=== PATIENT | female | born 1970 | race Caucasian/White ===

== ENCOUNTER 2018-12-25 18:12 | Emergency (ER) | payer BC, OTHER ==
[~2018-12-25] VITALS: Ht 157.5 cm; Wt 86.2 kg
[~2018-12-25 18:12] MED LIST: ACET650S13 PO; AGM875T GT; ASPI325T32 PO; CPR500T PO; CYCL10TA9 PO; IBUP-15 PO; METR500T PO; OMEP20CA12 PO; OXYC-199 PO; PRD20T PO; PRM25T PO; ROLAIDS PO; SCR1T1 PO; TERB15CR6 TP; TRAM50TA2 PO; TRAZ-144 PO
[2018-12-25] MEDS ORDERED: DEXAMETHASONE 10 MG/ML (DECADRON) 1 ML VIAL IM ONE (18:45)
--- NOTE | 2018-12-25 18:46 | ED EENT ---
History of Present Illness General Chief Complaint: Ear Problems Stated Complaint: FEVER Nursing Triage Note: C/O OF EAR PAIN FOR 1 WEEK WITH FEVER LAST TOOK OTC PAIN LAST NIGHT Source: patient Exam Limitations: no limitations History of Present Illness Date Seen by Provider: Dec 25, 2018 Time Seen by Provider: 18:31 Initial Comments Here with report of upper respiratory complaints over the last week including ear fullness and nasal congestion. She did try ibuprofen briefly but not today. She also didn't amoxicillin for a few days and that seemed to help but then she ran out of the remainder of the prescription that she had home. She does smoke. Timing/Duration: gradual, last week Severity: moderate Location: ear (R), ear (L), nose, facial Prearrival Treatment: over the counter meds Modifying Factors: Improves With Rest Associated Symptoms: No cough; ear drainage, fever, nasal congestion/drainage, sinus infection Allergies and Home Medications Allergies Coded Allergies: Iodinated Contrast Media - IV Dye (Verified Allergy, Unknown, 09/16/07) Home Medications Cyclobenzaprine HCl 10 Mg Tablet, 10 MG PO Q8H PRN for SPASMS Prescribed by: GLADYS PRECIADO on 05/12/16 1229 Terbinafine HCl 15 Gm Cream..g., 15 GM TP UD apply to affected area BID x3-4 weeks. continue for 2 days after symptoms resolve. Prescribed by: GLADYS PRECIADO on 05/12/16 1229 Patient Home Medication List Home Medication List Reviewed: Yes Review of Systems Review of Systems Constitutional: see HPI; No chills; fever Eyes: No Symptoms Reported Ears: See HPI Nose: see HPI Mouth: no symptoms reported Throat: denies hoarse, denies muffled Respiratory: No cough Gastrointestinal: no symptoms reported Past Nicevkk-Huslxk-Bkjedq Hx Past Med/Social Hx: Reviewed Nursing Past Med/Soc Hx Patient Social History Alcohol Use: Denies Use Recreational Drug Use: No Smoking Status: Never a Smoker Recent Foreign Travel: No Contact w/Someone Who Travel: No Recent Infectious Disease Expo: No Recent Hopitalizations: No Past Medical History Surgeries: Yes (GALLBLADDER, KIDNEY STONE, 3 C SECTIONS) Appendectomy, Hysterectomy Respiratory: No (Tobaccoism) Cardiac: No Neurological: No Reproductive Disorders: No 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 Sexually Transmitted Disease: No HIV/AIDS: No Kidney Stones Gastrointestinal: No Musculoskeletal: No Endocrine: No Cancer: No Psychosocial: No Integumentary: No Blood Disorders: No Family Medical History Reviewed Nursing Family Hx Cancer 19 MOTHER (endometrial- caught early) Grandmother (endometrial cancer) Grandfather (lung) Family history: Cardiovascular disease 19 MOTHER (stents ) Family history: Diabetes mellitus Grandmother uncle aunt Family history: Hypertension Grandmother Myocardial infarction Grandmother uncle Other Conditions/Hx Physical Exam Vital Signs Vital Signs - First Documented 12/25/18 18:20 Temp 97.9 Pulse 76 Resp 18 B/P (MAP) 145/96 (112) Pulse Ox 96 O2 Delivery Room Air Height, Weight, BMI Height: 5'2.00" Weight: 190lbs. oz. 86.379696qj; 35.15 BMI Method:Stated General Appearance: WD/WN, no apparent distress Eyes: bilateral eye normal inspection, bilateral eye PERRL, bilateral eye EOMI Ears: bilateral ear TM red, bilateral ear TM bulging Nose: other (moderate bilateral nasal congestion with erythema) Mouth/Throat: No trismus; other (mild pharyngeal erythema) Neck: full range of motion, supple Cardiovascular: regular rate, rhythm, no murmur Respiratory: lungs clear Neurologic/Psychiatric: alert, oriented x 3 Progress/Results/Core Measures Results/Orders My Orders Orders - PALAK TUTTLE MD Dexamethasone Injection (Decadron Inject (12/25/18 18:45) Vital Signs/I&O 12/25/18 18:20 Temp 97.9 Pulse 76 Resp 18 B/P (MAP) 145/96 (112) Pulse Ox 96 O2 Delivery Room Air Blood Pressure Mean: 112 Progress Progress Note : Progress Note Seen and evaluated. Decadron 10 mg IM. Discharged home with return precautions. Patient verbalize understanding instructions and agreement with plan. Departure Impression Primary Impression: Sinusitis, acute Qualified Codes: J01.90 - Acute sinusitis, unspecified Disposition: HOME, SELF-CARE Condition: Improved Departure-Patient Inst. Decision time for Depature: 18:46 Referrals: SEHEBA GUSTAFSON DO (PCP/Family) Primary Care Physician Patient Instructions: Sinusitis, Adult (DC), Bacterial Upper Respiratory Infection, Adult (DC) Add. Discharge Instructions: All discharge instructions reviewed with patient and/or family. Voiced understanding. You may take Tylenol/acetaminophen 1000 mg every 8 hours as needed for fever or pain. You may take ibuprofen 600 mg every 8 hours as needed for fever or pain. You may use Afrin nasal spray or the generic, 12 hour relief, 2 sprays to each nostril twice daily for 3 days only and then stop. Do not use more than 3 days. Follow-up with your Dr. in a few days for recheck. Drink plenty of fluids. Return for worse pain, fever, vomiting, weakness, breathing problems or other concerns as needed. You may also take Claritin or the generic loratadine, 10 mg daily as needed for allergy symptoms. Scripts Amoxicillin (Amoxicillin) 500 Mg Capsule 1000 MG PO TID, #60 CAP 0 Refills Prov: PALAK TUTTLE MD 12/25/18 PALAK TUTTLE MD Dec 25, 2018 18:46
[2018-12-25] MEDS ORDERED: AMOX500C2 PO (18:49)
[2018-12-25 18:50] VITALS: BP 145/96
--- OUTSIDE RECORDS SUMMARY | 2018-12-25 19:32 | XMS REPORT ---
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 Active 355895470 Problem Intestinal infection due to other organism, NEC 008.8 Active 87119367 Problem Impacted cerumen 380.4 Active 09310485 Problem Acute sinusitis, unspecified 461.9 Active 31901455 ALLERGIES Substance Reaction Event Type Date Status Kidney Dye Unknown Non Drug Allergy Nov, Active ENCOUNTERS Encounter Location Date Diagnosis [facility] [address] [place] [address] Nov, Acute suppurative otitis media of both ears without spontaneous rupture of tympanic membranes, recurrence not specified H66.003 [facility] [address] [address] Oct, Fluid level behind tympanic membrane of both ears H65.93 and BMI 40.0-44.9, adult Z68.41 [facility] [address] [address] Oct, Acute non-recurrent frontal sinusitis J01.10 and Acute effusion of both middle ears H65.193 [facility] [address] [address] May, Mucopurulent chronic bronchitis J41.1 and COPD (chronic obstructive pulmonary disease) with chronic bronchitis J44.[address] [facility] [address] [id number] Mar, Dental examination Z01.[address] [facility] [address] [id number] [id number] 18 Mar, 2016 Dental examination Z01.[address] [facility] [address] [id number] January, Encounter for dental examination Z01.[address] [facility] [address] [id number] [id number] Dec, Dental caries K02.[address] [facility] [address] [id number] [id number] Oct, Dental examination Z01.20 [facility] [address] [id number], [place] [address] 14 Mar, 2015 [facility] [id number] [place] [address] Dec, [facility] [id number] [place] [address] Dec, [facility] [address] [address] Nov, [facility] [id number] [place] [address] Nov, [facility] [address] [address] Sep, [facility] [address] [address] Sep, [facility] [address] [address] Sep, [facility] [address] [address] Sep, [facility] [address] [id number] [address] Sep, [facility] [address] [id number], [place] [address] Sep, IMMUNIZATIONS No Known Immunizations SOCIAL HISTORY Never Assessed REASON FOR VISIT left earache. pt was here on the and 03 of november for earache. pt reports she has missed a weeks worth of work...and the pain is getting worse. [email or web address] PLAN OF CARE VITAL SIGNS Height 62 in 2017-11-07 Weight 225.4 lbs 2017-11-07 Temperature 98.6 degrees Fahrenheit 2017-11-07 Heart Rate 84 bpm 2017-11-07 Respiratory Rate 20 2017-11-07 BMI 41.22 kg/m2 2017-11-07 Blood pressure systolic 140 mmHg 2017-11-07 Blood pressure diastolic 80 mmHg 2017-11-07 MEDICATIONS Medication Instructions Dosage Frequency Start Date End Date Duration Status Zyrtec Allergy 10 MG Orally Once a day 1 tablet 24h Oct, Nov, 30 day(s) Active Flonase 50 MCG/ACT Nasally Once a day 1 spray in each nostril 24h Oct, 30 day(s) Active Cephalexin 500 MG Orally Twice a day 1 capsule 12h Not-Taking Proventil HFA 108 (90 Base) MCG/ACT Inhalation every 4 hrs 2 puffs as needed 4h May, Not-Taking Ibuprofen 200 mg take 3 tablets by Oral route 4 times per day with food for 5 days PRN Sep, Active Amoxicillin 500 mg Orally every 8 hrs 1 capsule 8h Nov, Nov, 10 day(s) Active PredniSONE 20 mg Orally Once a day 2 tablets 24h Nov, Nov, 05 days Active PredniSONE 1 MG Not-Taking Tylenol 325 MG Orally every 6 hrs 2 tablets as needed 6h Not- Taking RESULTS No Results PROCEDURES No Known procedures INSTRUCTIONS MEDICATIONS ADMINISTERED No Known Medications MEDICAL (GENERAL) HISTORY Type Description Date Surgical History c section 1993 Surgical History c section 2003 Surgical History c section 2007 Surgical History gallbladder 1999 Surgical History hysterectomy 2010 Surgical History tonsils 1994 Hospitalization History see above
--- OUTSIDE RECORDS SUMMARY | 2018-12-25 19:32 | XMS REPORT ---
Author Author ESSIE BENAVIDEZ Organization [facility] Address [address] [place] [address] Care Team Providers Care Front End Alignment Specialist Name Role Phone ESSIE BENAVIDEZ Unavailable PROBLEMS Type Condition ICD9-CM Code [id number] Code Onset Dates Condition Status SNOMED Code Problem COPD (chronic obstructive pulmonary disease) with chronic bronchitis J44.9 Active 307676637 Problem Intestinal infection due to other organism, NEC 008.8 Active 38778961 Problem Impacted cerumen 380.4 Active 06814175 Problem Acute sinusitis, unspecified 461.9 Active 04921737 ALLERGIES Substance Reaction Event Type Date Status Kidney Dye Unknown Non Drug Allergy Oct, Active ENCOUNTERS Encounter Location Date Diagnosis [facility] [address] [address] Nov, Acute suppurative otitis media of both ears without spontaneous rupture of tympanic membranes, recurrence not specified H66.003 [facility] [address] [address] Oct, Fluid level behind tympanic membrane of both ears H65.93 and BMI 40.0-44.9, adult Z68.41 [facility] [id number] [place] [address] Oct, Acute non-recurrent frontal sinusitis J01.10 and Acute effusion of both middle ears H65.193 [facility] [address] [address] May, Mucopurulent chronic bronchitis J41.1 and COPD (chronic obstructive pulmonary disease) with chronic bronchitis J44.9 [facility] [address] [id number] Mar, Dental examination Z01.20 [facility] [address] [id number] [id number] Mar, Dental examination Z01.20 [facility] [address] [id number] [id number] January, Encounter for dental examination Z01.20 [facility] [address] [id number] [phone] Dec, Dental caries K02.9 [facility] [address] [id number] [phone] Oct, Dental examination Z01.20 [facility] [address] [id number] [place] [address] 14 Mar, 2015 [facility] [address] [id number], [place] [address] Dec, [facility] [id number] [place] [address] Dec, [facility] [address] [id number], [place] [address] Nov, [facility] [address] [id number] [place] [address] Nov, [facility] [address] [id number], [place] [address] Sep, [facility] [address] [id number], [place] [address] Sep, [facility] [address] [id number], [place] [address] Sep, [facility] [address] [id number], [place] [address] Sep, [facility] [address] [id number], [place] [address] Sep, [facility] [address] [id number], [place] [address] Sep, IMMUNIZATIONS Vaccine Route Administration Date Status SOLUMEDROL (UP TO 125 MG) IM Intramuscular Oct 31, 2017 Administered SOCIAL HISTORY Never Assessed REASON FOR VISIT Bilat ear pain, balance is off started about 1 week ago Maria Isabel PLAN OF CARE Activity Details Follow Up prn Reason: VITAL SIGNS Height 62 in 2017-10-31 Weight 226 lbs 2017-10-31 Temperature 97.9 degrees Fahrenheit 2017-10-31 Heart Rate 82 bpm 2017-10-31 Respiratory Rate 20 2017-10-31 BMI 41.33 kg/m2 2017-10-31 Blood pressure systolic 140 mmHg 2017-10-31 Blood pressure diastolic 90 mmHg 2017-10-31 MEDICATIONS Medication Instructions Dosage Frequency Start Date End Date Duration Status PredniSONE 1 MG Not-Taking Tylenol 325 MG Orally every 6 hrs 2 tablets as needed 6h Not- Taking Cephalexin 500 MG Orally Twice a day 1 capsule 12h Not-Taking Ibuprofen 200 mg take 3 tablets by Oral route 4 times per day with food for 5 days PRN Sep, Active Azithromycin 250 MG Orally Once a day 2 tablets on the first day, then 1 tablet daily for 4 days 24h Oct, Nov, 5 day(s) Active Proventil HFA 108 (90 Base) MCG/ACT Inhalation every 4 hrs 2 puffs as needed 4h May, Not-Taking RESULTS No Results PROCEDURES Procedure Date Ordered Result Body Site SOLUMEDROL (UP TO 125 MG) Oct 31, 2017 THER/PROPH/DIAG INJ, SC/IM Oct 31, 2017 INSTRUCTIONS MEDICATIONS ADMINISTERED No Known Medications MEDICAL (GENERAL) HISTORY Type Description Date Surgical History c section 1993 Surgical History c section 2003 Surgical History c section 2007 Surgical History gallbladder 1999 Surgical History hysterectomy 2010 Surgical History tonsils 1994 Hospitalization History see above
--- OUTSIDE RECORDS SUMMARY | 2018-12-25 19:32 | XMS REPORT ---
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.9 Active 685079956 Problem Encounter for dental examination Z01.20 Active 772902697 Problem Impacted cerumen 380.4 Active 66782786 Problem Intestinal infection due to other organism, NEC 008.8 Active 51690798 Problem Acute sinusitis, unspecified 461.9 Active 51498817 ALLERGIES Substance Reaction Event Type Date Status Kidney Dye Unknown Non Drug Allergy May, Active SOCIAL HISTORY No smoking Hx information available PLAN OF CARE Activity Details Follow Up 2 - 3 Days, prn Reason: VITAL SIGNS Height 62 in 2016-05-26 Weight 221.2 lbs 2016-05-26 Temperature 97.9 degrees Fahrenheit 2016-05-26 Heart Rate 78 bpm 2016-05-26 Respiratory Rate 18 2016-05-26 BMI 40.45 kg/m2 2016-05-26 Blood pressure systolic 140 mmHg 2016-05-26 Blood pressure diastolic 94 mmHg 2016-05-26 MEDICATIONS Medication Instructions Dosage Frequency Start Date End Date Duration Status Proventil HFA 108 (90 Base) MCG/ACT Inhalation every 4 hrs 2 puffs as needed 4h May, Active Doxycycline Hyclate 100 MG Orally every 12 hrs 1 capsule 12h May, May, 10 days Active Cephalexin 500 MG Orally Twice a day 1 capsule 12h Active Tylenol 325 MG Orally every 6 hrs 2 tablets as needed 6h Active PredniSONE 1 MG Active RESULTS No Results PROCEDURES Procedure Date Ordered Related Diagnosis Body Site Office Visit, Est Pt., Level 3 May 26, 2016 DEXAMETHASONE 4MG/ML (PER 1 MG) May 26, 2016 DEPO MEDROL 40 MG/ML May 26, 2016 THER/PROPH/DIAG INJ, SC/IM May 26, 2016 IMMUNIZATIONS Vaccine Route Administration Date Status DEPO MEDROL 40 MG/ML IM Intramuscular May 26, 2016 Administered DEXAMETHASONE 4MG/ML (PER 1 MG) IM Intramuscular May 26, 2016 Administered
--- OUTSIDE RECORDS SUMMARY | 2018-12-25 19:33 | XMS REPORT ---
Author Author VERENA NAVA Organization [employer] Address Unknown Phone Unavailable Care Team Providers Care Retail Supervisor Name Role Phone VERENA NAVA CP Unavailable Allergies, Adverse Reactions, Alerts Substance Reaction Event Type Kidney Dye Info Not Available Non Drug Allergy Problems Problem Type Condition Code Onset Dates Condition Status Problem Intestinal infection due to other organism, NEC 008.8 Active Problem Acute sinusitis, unspecified 461.9 Active Problem Encounter for dental examination Z01.20 Active Problem Impacted cerumen 380.4 Active Assessment Dental examination Z01.20 Active Medications Medication Code System Code Instructions Start Date End Date Status Dosage Ibuprofen [facility] [address]-89 200 mg Sep 21, 2014 take 3 tablets by Oral route 4 times per day with food for 5 days PRN Procedures Procedure Coding System Code Date RESIN COMPOS - 3 SURFACES ANTERIOR CPT-4 D2332 March 24, 2016 Vital Signs Date/Time: March 24, 2016 Blood Pressure Diastolic 87 mmHg Blood Pressure Systolic 127 mmHg Results No Known Results Summary Purpose [employer] Submission
--- OUTSIDE RECORDS SUMMARY | 2018-12-25 19:33 | XMS REPORT ---
Author Author VERENA NAVA Organization [employer] Address Unknown Phone Unavailable Care Team Providers Care Medical Record Retrieval Specialist Name Role Phone VERENA NAVA CP Unavailable [...] Start Date End Date Status Dosage Ibuprofen [facility] [address]-78 200 mg Sep 21, 2014 take 3 tablets by Oral route 4 times per day with food for 5 days PRN Procedures Procedure Coding System Code Date RESIN COMPOS - 3 SURFACES ANTERIOR CPT-4 D2332 March 26, 2016 Vital Signs Date/Time: March 26, 2016 Blood Pressure Diastolic 81 mmHg Blood Pressure Systolic 120 mmHg Results No Known Results Summary Purpose [employer] Submission
--- OUTSIDE RECORDS SUMMARY | 2018-12-25 19:33 | XMS REPORT | Continuity of Care Document ---
Author Organization Unknown Address Unknown Allergies Active Description Code Type Severity Reaction Onset Reported/Identified Relationship to Patient Clinical Status Yes Iodinated Contrast Media - IV Dye [id number] Drug Allergy Unknown N/A 09/16 Yes Iodinated Contrast- Oral and IV Dye [id number] Drug Allergy Unknown N/A 06/2008 Medications There is no data. Problems Date Dx Coded Attending Type Code Diagnosis Diagnosed By 04/04/2012 Ot 305.1 TOBACCO USE DISORDER 04/04/2012 Ot 530.11 REFLUX ESOPHAGITIS 04/04/2012 Ot 535.50 UNSP GASTRITIS GASTRODUODENITIS W/O ME 04/04/2012 Ot 558.9 NONINF GASTROENTERIT NEC 04/02/2014 JIMENA FERNANDES APRN Ot 789.09 ABDOMINAL PAIN, OTHER SPECIFIED SITE 04/06/2014 BRODY RUDOLPH, ELINOR Ot 540.9 ACUTE APPENDICITIS NOS 09/21/2014 VIVIAN RUDOLPH, HAYLEY N 461.9 SINUSITIS ACUTE 11/24/2015 ALIZE HOWARD MD Ot F17.210 NICOTINE DEPENDENCE, CIGARETTES, UNCOMPL 11/24/2015 ALIZE HOWARD MD Ot M12.572 TRAUMATIC ARTHROPATHY, LEFT ANKLE AND FO 11/24/2015 ALIZE HOWARD MD Ot M77.32 CALCANEAL SPUR, LEFT FOOT 05/12/2016 GLADYS SHEPHERD Ot B35.4 TINEA CORPORIS 05/12/2016 GLADYS SHEPHERD Ot F17.210 NICOTINE DEPENDENCE, CIGARETTES, UNCOMPL 05/12/2016 GLADYS SHEPHERD Ot M54.5 LOW BACK PAIN 05/12/2016 GLADYS SHEPHERD Ot Z87.442 PERSONAL HISTORY OF URINARY CALCULI 06/03/2016 ALIZE HOWARD MD Ot F17.210 NICOTINE DEPENDENCE, CIGARETTES, UNCOMPL 06/03/2016 ALIZE HOWARD MD Ot M12.572 TRAUMATIC ARTHROPATHY, LEFT ANKLE 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 Results Test Result Range Complete urinalysis with reflex to culture - 05/12/16 10:15 Urine color determination YELLOW NRG Urine clarity determination SLIGHTLY CLOUDY NRG Urine pH measurement by test strip 5 5-9 Specific gravity of urine by test strip 1.025 1.016- 1.022 Urine protein assay by test strip, semi-quantitative NEGATIVE NEGATIVE Urine glucose detection by automated test strip NEGATIVE NEGATIVE Erythrocytes detection in urine sediment by light microscopy 3+ NEGATIVE Urine ketones detection by automated test strip NEGATIVE NEGATIVE Urine nitrite detection by test strip NEGATIVE NEGATIVE Urine total bilirubin detection by test strip NEGATIVE NEGATIVE Urine urobilinogen measurement by automated test strip (mass/volume) NORMAL NORMAL Urine leukocyte esterase detection by dipstick 1+ NEGATIVE Automated urine sediment erythrocyte count by microscopy (number/high power field) [HPF] NRG Automated urine sediment leukocyte count by microscopy (number/high power field ) RARE NRG Bacteria detection in urine sediment by light microscopy NEGATIVE NRG Squamous epithelial cells detection in urine sediment by light microscopy 25-50 NRG Crystals detection in urine sediment by light microscopy NONE NRG Casts detection in urine sediment by light microscopy NONE NRG Mucus detection in urine sediment by light microscopy LARGE NRG Complete urinalysis with reflex to culture NO NRG Complete blood count (CBC) with automated white blood cell (WBC) differential - 05/12/16 11:23 Blood leukocytes automated count (number/volume) 6.5 10*3/uL 4.3-11.0 Blood erythrocytes automated count (number/volume) 4.91 10*6/uL 4.35-5.85 Venous blood hemoglobin measurement (mass/volume) 16.0 g/dL 11.5-16.0 Blood hematocrit (volume fraction) 46 % 35-52 Automated erythrocyte mean corpuscular volume 93 [foz_us] 80-99 Automated erythrocyte mean corpuscular hemoglobin (mass per erythrocyte) 33 pg 25-34 Automated erythrocyte mean corpuscular hemoglobin concentration measurement ( mass/volume) 35 g/dL 32-36 Automated erythrocyte distribution width ratio 12.2 % 10.0-14.5 Automated blood platelet count (count/volume) 241 10*3/uL 130-400 Automated blood platelet mean volume measurement 9.7 [foz_us] 7.4-10.4 Automated blood neutrophils/100 leukocytes 51 % 42-75 Automated blood lymphocytes/100 leukocytes 39 % 12-44 Blood monocytes/100 leukocytes 5 % 0-12 Automated blood eosinophils/100 leukocytes 4 % 0-10 Automated blood basophils/100 leukocytes 1 % 0-10 Blood neutrophils automated count (number/volume) 3.3 10*3 1.8-7.8 Blood lymphocytes automated count (number/volume) 2.6 10*3 1.0-4.0 Blood monocytes automated count (number/volume) 0.3 10*3 0.0-1.0 Automated eosinophil count 0.3 10*3/uL 0.0-0.3 Automated blood basophil count (count/volume) 0.1 10*3/uL 0.0-0.1 Comprehensive metabolic panel - 05/12/16 11:23 Serum or plasma sodium measurement (moles/volume) 141 mmol/L 135-145 Serum or plasma potassium measurement (moles/volume) 4.0 mmol/L 3.6-5.0 Serum or plasma chloride measurement (moles/volume) 108 mmol/L 98-107 Carbon dioxide 21 mmol/L 21-32 Serum or plasma anion gap determination (moles/volume) 12 mmol/L 5-14 Serum or plasma urea nitrogen measurement (mass/volume) 16 mg/dL 7-18 Serum or plasma creatinine measurement (mass/volume) 0.64 mg/dL 0.60-1.30 Serum or plasma urea nitrogen/creatinine mass ratio 25 NRG Serum or plasma creatinine measurement with calculation of estimated glomerular filtration rate > NRG Serum or plasma glucose measurement (mass/volume) 89 mg/dL 70-105 Serum or plasma calcium measurement (mass/volume) 8.8 mg/dL 8.5-10.1 Serum or plasma total bilirubin measurement (mass/volume) 1.5 mg/dL 0.1-1.0 Serum or plasma alkaline phosphatase measurement (enzymatic activity/volume) 97 U/L 40-136 Serum or plasma aspartate aminotransferase measurement (enzymatic activity/ volume) 19 U/L 5-34 Serum or plasma alanine aminotransferase measurement (enzymatic activity/volume ) 30 U/L 0-55 Serum or plasma protein measurement (mass/volume) 6.8 g/dL 6.4-8.2 Serum or plasma albumin measurement (mass/volume) 4.3 g/dL 3.2-4.5 Lipase - 05/12/16 11:23 Lipase 14 U/L 8-78 Encounters ACCT No. Visit Date/Time Discharge Status Pt. Type Provider Facility Loc./Unit Complaint [id number] 09/21/2014 13:45:00 09/21/2014 23:59:59 CLS Outpatient HAYLEY PARK MD [id number] 12/25/2018 18:14:00 12/25/2018 18:53:00 DIS Emergency PARAG RUDOLPH, PALAK Soni [facility] ER FEVER [id number] 05/12/2016 09:29:00 05/12/2016 12:43:00 DIS Emergency GLADYS SHEPHERD [facility] ER LOW BACK/ABD PAIN [id number] 11/24/2015 10:05:00 11/24/2015 11:15:00 DIS Emergency ALIZE HOWARD MD [facility] ER L FOOT/ANKLE INJ [id number] 04/04/2014 13:09:00 04/06/2014 12:30:00 DIS Outpatient ELINOR SKINNER MD [facility] ACUTE APPENDICITIS [id number] 04/02/2014 18:25:00 04/02/2014 21:03:00 DIS Emergency JIMENA FERNANDES APRN [facility] ER ABD PAIN [id number] 03/12/2013 09:58:00 03/12/2013 23:59:59 CLS Outpatient [id number] 04/02/2012 13:59:00 Document Registration [id number] 11/07/2017 15:00:00 11/07/2017 23:59:59 CLS Outpatient [facility]
== END 2018-12-25 18:53 | disposition home or self-care (01) ==
LOC: EDUNIT# 18:12 → ER 18:14
DX: J01.90 Acute sinusitis, unspecified (principal); Z91.041 Radiographic dye allergy status; Z90.710 Acquired absence of both cervix and uterus; Z90.49 Acquired absence of other specified parts of digestive tract; Z87.442 Personal history of urinary calculi; Z98.890 Other specified postprocedural states; Z82.49 Family history of ischemic heart disease and other diseases of the circulatory system
CPT/HCPCS: 96372; 99284